=== PATIENT | male | born 1940 | race Caucasian/White ===

== ENCOUNTER 2019-11-13 19:26 | Inpatient (IN) ==
[2019-11-13 20:23] LABS: Basophils % 0.3 % (0.0-0.8); Eosinophils % 0.1 % (0.00-10.9); Hematocrit 30.4 VOL% (42.0-52.0); Immature Granulocytes % 0.7 %; Lymphocytes # 0.7 10*3/uL (1.4-4.0); Mean Corpuscular HGB Conc 32.9 GM/DL (32-36); Mean Platelet Volume 11.2 FL (9.6-12.0); Monocytes % 11.1 % (1.7-12.7); Neutrophils % 82.8 % (38.7-73.9); Platelet Count 212 T/CUMM (130-400); Red Blood Count 3.34 MC/CUMM (3.8-5.5); Red Cell Distribution Width 14.1 % (9.3-17.3); White Blood Count 13.9 T/CUMM (4-12)
[2019-11-13] MEDS ORDERED: FUROSEMIDE 100 MG/10 ML VIAL IV STA (20:30)
[2019-11-13 20:36] LABS: INR 1.1; PT Patient Result 11.4 SECS (9.8-11.9)
[2019-11-13 20:48] LABS: Albumin 3.4 G/DL (3.4-5.0); Bilirubin,Total 0.8 MG/DL (0.2-1.0); Calcium 8.6 MG/DL (8.5-10.1); Total Protein 8.2 G/DL (6.4-8.3)
[2019-11-13] MEDS ORDERED: cefTRIAXone 1,000 MG in SODIUM CHLORIDE 0.9% 100 ML IV STA (20:48)
[2019-11-13] MEDS ORDERED: AZITHROMYCIN INJ 500 MG in SODIUM CHLORIDE 0.9% 250 ML IV STA (20:48)
[2019-11-13 20:57] LABS: Ferritin 153.4 ng/ml (26-388)
[2019-11-13] MEDS ORDERED: ENOXAPARIN 100 MG/ML SYRINGE SUBCUT STA (21:14)
[2019-11-13] MEDS ORDERED: ASPIRIN 325 MG TABLET PO STA (21:14)
[2019-11-13] MEDS ORDERED: POTASSIUM CHLORIDE 20 MEQ TABLET PO STA (21:20)
[2019-11-13] MEDS ORDERED: GLUCAGON 1 MG VIAL IM PRN (21:36)
[2019-11-13] MEDS ORDERED: diphenhydrAMINE CAP 25 MG CAPSULE PO PRN (21:36)
[2019-11-13] MEDS ORDERED: ACETAMINOPHEN 325 MG TABLET PO PRN (21:36)
[2019-11-13] MEDS ORDERED: ALUMINUM/MAGNES/SIMETH MAX STR 30 ML UDCUP PO PRN (21:36)
[2019-11-13] MEDS ORDERED: DEXTROSE 50% 25 GM/50 ML VIAL IV PRN ×2 (21:36)
[2019-11-13] MEDS ORDERED: NICOTINE 21 MG/24 HR PATCH TRANSDERM PRN (21:36)
[2019-11-13] MEDS ORDERED: LACTULOSE 20 GM/30 ML UDCUP PO PRN (21:36)
[2019-11-13] MEDS ORDERED: PROMETHAZINE 25 MG/1 ML VIAL IM PRN (21:36)
[2019-11-13] MEDS ORDERED: hydrALAZINE 20 MG/1 ML VIAL IV PRN (21:36)
[2019-11-13] MEDS ORDERED: guaiFENesin/DM ER 600-30 MG TABLET PO PRN (21:36)
[2019-11-13] MEDS ORDERED: SIMETHICONE CHEW 125 MG TABLET PO PRN (21:36)
[2019-11-13] MEDS ORDERED: ONDANSETRON 4 MG/2 ML VIAL IV PRN (21:36)
[2019-11-13] MEDS ORDERED: NITROGLYCERIN SL 0.4 MG TABLET SL PRN (21:42)
[2019-11-13] MEDS ORDERED: ALBUTEROL 2.5 MG/3 ML NEB RESP TX PRN (23:34)
[2019-11-14] MEDS: ZALEPLON 5 MG CAPSULE PO PRN ×3 (00:05→22:05)
[2019-11-14 03:28] LABS: Basophils % 0.2 % (0.0-0.8); Eosinophils % 0.1 % (0.00-10.9); Hematocrit 28.9 VOL% (42.0-52.0); Hemoglobin 9.3 GM/DL (14.0-18.0); Immature Granulocytes % 1.3 %; Immature Granulocytes Absolute 0.18 #; Lymphocytes # 0.4 10*3/uL (1.4-4.0); Lymphocytes % 2.8 % (21.2-54.2); Mean Corpuscular HGB Conc 32.2 GM/DL (32-36); Mean Platelet Volume 11.4 FL (9.6-12.0); Monocytes % 9.4 % (1.7-12.7); Neutrophils % 86.2 % (38.7-73.9); Platelet Count 204 T/CUMM (130-400); Red Blood Count 3.14 MC/CUMM (3.8-5.5); Red Cell Distribution Width 14.3 % (9.3-17.3); White Blood Count 13.5 T/CUMM (4-12)
[2019-11-14 05:03] LABS: Band Neutrophils 1 % (0-10); Hypochromasia Slight; Lymphocytes 1 % (20-55); Segmented Neutrophils 92 % (50-85); Total Cells Counted 100
[2019-11-14 05:04] LABS: Microcytosis 1+; Platelet Estimate Normal; Polychromasia Slight
[2019-11-14] MEDS: ALBUTEROL 2.5 MG/3 ML NEB RESP TX SCH ×4 (07:00→23:30)
[2019-11-14 08:48] LABS: Calcium 8.5 MG/DL (8.5-10.1)
[2019-11-14 08:50] LABS: Risk Ratio 3.19; VLDL CHOLESTEROL 21.8 MG/DL
[2019-11-14] MEDS ORDERED: ASPIRIN EC 325 MG TABLET PO SCH (09:00)
[2019-11-14] MEDS ORDERED: FUROSEMIDE 40 MG/4 ML VIAL IV SCH ×2 (09:00→16:00)
[2019-11-14] MEDS ORDERED: POTASSIUM CHLORIDE 20 MEQ TABLET PO PRN (09:11)
[2019-11-14] MEDS: carvediloL 3.125 MG TABLET PO SCH ×2 (09:38→22:05)
[2019-11-14] MEDS: ENOXAPARIN 100 MG/ML SYRINGE SUBCUT SCH ×2 (09:39→22:06)
[2019-11-14] MEDS: DOCUSATE SODIUM 100 MG CAPSULE PO SCH ×2 (09:39→22:05)
[2019-11-14] MEDS: INSULIN LISPRO 100 UNIT/ML SUBCUT SCH ×4 (09:39→22:06)
[2019-11-14 10:01] LABS: % Iron Saturation 7.1 % (18-50)
[2019-11-14 10:53] LABS: CKMB % 1.2 %
[2019-11-14 10:55] LABS: Troponin I 1.92 NG/ML (0.00-0.045)
[2019-11-14] MEDS ORDERED: FUROSEMIDE 40 MG/4 ML VIAL IV ONE (11:05)
[2019-11-14] MEDS ORDERED: LORazepam 2 MG/1 ML VIAL IV ONE (11:28)
[2019-11-14] MEDS ORDERED: NITROGLYCERIN 2% OINT 1 INCH/GM PACK TOP SCH (12:00)
[2019-11-14] MEDS: NITROGLYCERIN 2% OINT 1 INCH/GM PACK TOP SCH ×2 (12:24→18:10)
[2019-11-14] MEDS ORDERED: methylPREDNISolone SOD SUC 125 MG/2 ML VIAL IV ONE (12:44)
[2019-11-14 13:33] LABS: ABG Base Excess -2.9 MMOL/L (-2.5-2.5); ABG Oxygen Saturation 96.5 % (95-100); ABG PCO2 43.7 MM HG (35-48); ABG PH 7.329 (7.35-7.45); ABG PO2 88.2 MM HG (80-95); ABG TCO2 21.1 MMOL/L (23-27); Allen Test Positive
[2019-11-14] MEDS: ALBUTEROL/IPRATROPIUM 3 ML NEB RESP TX SCH ×2 (13:34→20:18)
[2019-11-14] MEDS: LEVOFLOXACIN INJ 750 MG in PREMIX 1 EACH IV SCH (14:23)
[2019-11-14 15:30] LABS: Apearance,Urine CLEAR (Clear); Bilirubin,Urine Negative (Negative); Blood, Urine Large mg/dL (Negative); Glucose,Urine (UA) Negative (Negative); Hyaline Casts,Urine 23 /LPF (0-3); Ketones,Urine Negative (Negative); Mucus,Urine Occasional /LPF (Occasional); Nitrite,Urine Negative (Negative); Protein,Urine Negative; RBC,Urine <1 /HPF (0-4); Urine Color Yellow (Yellow); Urine Specific Gravity 1.006 (1.001-1.035); Urine Urobilinogen < 2.0 EU/DL (0.2-1.0)
[2019-11-14] MEDS: PIPERACILLIN/TAZOBACTAM 3,375 MG in SODIUM CHLORIDE 0.9% 100 ML IV SCH ×2 (16:34→23:42)
[2019-11-14] MEDS ORDERED: AZITHROMYCIN INJ 500 MG in SODIUM CHLORIDE 0.9% 250 ML IV SCH (21:00)
[2019-11-14] MEDS ORDERED: cefTRIAXone 1,000 MG in SYRINGE 1 EACH IV SCH (21:00)
[2019-11-14] MEDS: ATORVASTATIN 40 MG TABLET PO SCH (22:05)
[2019-11-14] MEDS: VANCOMYCIN INJ 1,250 MG in SODIUM CHLORIDE 0.9% 250 ML IV SCH (22:08)
[2019-11-15] MEDS: NITROGLYCERIN 2% OINT 1 INCH/GM PACK TOP SCH ×4 (01:40→17:07)
[2019-11-15] MEDS: ZALEPLON 5 MG CAPSULE PO PRN (01:41)
[2019-11-15] MEDS: ALBUTEROL/IPRATROPIUM 3 ML NEB RESP TX SCH ×4 (01:45→20:15)
[2019-11-15 07:02] LABS: Basophils % 0.1 % (0.0-0.8); Hematocrit 30.7 VOL% (42.0-52.0); Immature Granulocytes % 0.9 %; Immature Granulocytes Absolute 0.15 #; Lymphocytes # 0.7 10*3/uL (1.4-4.0); Lymphocytes % 3.8 % (21.2-54.2); Mean Corpuscular HGB Conc 32.6 GM/DL (32-36); Mean Corpuscular Volume 92.2 FL (87-102); Mean Platelet Volume 12.2 FL (9.6-12.0); Monocytes % 7.8 % (1.7-12.7); Neutrophils % 87.4 % (38.7-73.9); Platelet Count 211 T/CUMM (130-400); Red Blood Count 3.33 MC/CUMM (3.8-5.5); Red Cell Distribution Width 14.3 % (9.3-17.3)
[2019-11-15 07:43] LABS: Calcium 8.5 MG/DL (8.5-10.1); Osmolality,Calculated 281.1 MOS/KG (273-304)
[2019-11-15 07:56] LABS: CKMB % 0.9 %
[2019-11-15 07:59] LABS: Troponin I 4.42 NG/ML (0.00-0.045)
[2019-11-15 08:31] LABS: Band Neutrophils 1 % (0-10); Hypochromasia Slight; Lymphocytes 4 % (20-55); Platelet Estimate Normal; Segmented Neutrophils 89 % (50-85); Total Cells Counted 100
[2019-11-15] MEDS: carvediloL 6.25 MG TABLET PO SCH ×2 (08:48→21:45)
[2019-11-15] MEDS: INSULIN LISPRO 100 UNIT/ML SUBCUT SCH ×4 (08:48→21:45)
[2019-11-15] MEDS: DOCUSATE SODIUM 100 MG CAPSULE PO SCH ×2 (08:48→21:45)
[2019-11-15] MEDS: ENOXAPARIN 100 MG/ML SYRINGE SUBCUT SCH ×2 (08:49→21:45)
[2019-11-15] MEDS: PIPERACILLIN/TAZOBACTAM 3,375 MG in SODIUM CHLORIDE 0.9% 100 ML IV SCH ×2 (08:52→16:16)
[2019-11-15] MEDS ORDERED: ASPIRIN EC 81 MG TABLET PO SCH (09:00)
[2019-11-15] MEDS: lisinopriL 5 MG TABLET PO SCH (09:02)
[2019-11-15] MEDS: FERROUS SULFATE 325 MG TABLET PO SCH ×2 (10:06→16:34)
[2019-11-15] MEDS: CLORAZEPATE 3.75 MG TABLET PO SCH ×3 (10:06→21:45)
[2019-11-15] MEDS: ALBUTEROL 2.5 MG/3 ML NEB RESP TX SCH (13:22)
[2019-11-15] MEDS: LEVOFLOXACIN INJ 750 MG in PREMIX 1 EACH IV SCH (13:49)
[2019-11-15] MEDS ORDERED: ZIPRASIDONE 20 MG/1 ML VIAL IM ONE (20:00)
[2019-11-15] MEDS: ATORVASTATIN 40 MG TABLET PO SCH (21:45)
[2019-11-15] MEDS: VANCOMYCIN INJ 1,250 MG in SODIUM CHLORIDE 0.9% 250 ML IV SCH (21:51)
[2019-11-15] MEDS: PHENYLEPHRINE DRIP 40 MG/250 ML PREMIX IV PRN (22:58)
[2019-11-15] MEDS ORDERED: NOREPINEPHRINE 8 MG in SODIUM CHLORIDE 0.9% 242 ML IV PRN (23:24)
[2019-11-15 23:25] LABS: Basophils % 0.2 % (0.0-0.8); Hematocrit 29.6 VOL% (42.0-52.0); Hemoglobin 9.7 GM/DL (14.0-18.0); Immature Granulocytes % 2.5 %; Immature Granulocytes Absolute 0.45 #; Lymphocytes # 1.7 10*3/uL (1.4-4.0); Lymphocytes % 9.3 % (21.2-54.2); Mean Corpuscular HGB Conc 32.8 GM/DL (32-36); Mean Corpuscular Volume 91.1 FL (87-102); Mean Platelet Volume 12.2 FL (9.6-12.0); Monocytes % 8.4 % (1.7-12.7); NRBC # 0.03 10*3/uL; Neutrophils % 79.6 % (38.7-73.9); Platelet Count 196 T/CUMM (130-400); Red Blood Count 3.25 MC/CUMM (3.8-5.5); Red Cell Distribution Width 14.1 % (9.3-17.3); White Blood Count 18.2 T/CUMM (4-12)
[2019-11-15] MEDS ORDERED: SODIUM BICARBONATE 50 MEQ/50 ML SYRINGE IV ONE (23:25)
[2019-11-15] MEDS ORDERED: CALCIUM CHLORIDE 1,000 MG/10 ML SYRINGE IV ONE (23:25)
[2019-11-15] MEDS ORDERED: EPINEPHrine 1 MG/10 ML SYRINGE ONE (23:25)
[2019-11-15 23:47] LABS: ABG Base Excess 1.3 MMOL/L (-2.5-2.5); ABG HCO3 25.5 MMOL/L (20-26); ABG Oxygen Saturation 94.3 % (95-100); ABG PCO2 66.3 MM HG (35-48); ABG PH 7.263 (7.35-7.45); ABG PO2 86.8 MM HG (80-95); ABG TCO2 27.6 MMOL/L (23-27)
[2019-11-15 23:51] LABS: Partial Thromboplastin Time 36.1 SECS (23.9-33.8)
[2019-11-15 23:52] LABS: PT Patient Result 15.6 SECS (9.8-11.9)
[2019-11-15 23:53] LABS: INR 1.5
[2019-11-15 23:57] LABS: Calcium 7.6 MG/DL (8.5-10.1); Troponin I 4.06 NG/ML (0.00-0.045)
[2019-11-16] LABS: Albumin 2.7 G/DL (3.4-5.0); Calcium 7.5 MG/DL (8.5-10.1); Osmolality,Calculated 283.8 MOS/KG (273-304); Total Protein 6.8 G/DL (6.4-8.3)
[2019-11-16] MEDS ORDERED: FUROSEMIDE 40 MG/4 ML VIAL ONE (00:07)
[2019-11-16 00:20] LABS: ABG Base Excess 0.9 MMOL/L (-2.5-2.5); ABG HCO3 29.6 MMOL/L (20-26); ABG Oxygen Saturation 76.8 % (95-100); ABG PCO2 70.6 MM HG (35-48); ABG PO2 53.5 MM HG (80-95); ABG TCO2 31.7 MMOL/L (23-27)
[2019-11-16] MEDS: ALBUTEROL/IPRATROPIUM 3 ML NEB RESP TX SCH ×4 (01:00→19:19)
[2019-11-16] MEDS: CISATRACURIUM 200 MG in SODIUM CHLORIDE 0.9% 180 ML IV PRN ×2 (01:23→15:05)
[2019-11-16] MEDS: MIDAZOLAM 100 MG in SODIUM CHLORIDE 0.9% 80 ML IV PRN ×3 (01:23→23:41)
[2019-11-16] MEDS: fentaNYL INJ 1,250 MCG in SODIUM CHLORIDE 0.9% 225 ML IV PRN ×3 (01:23→11:30)
[2019-11-16] MEDS: PHENYLEPHRINE DRIP 40 MG/250 ML PREMIX IV PRN ×2 (01:27→04:29)
[2019-11-16] MEDS ORDERED: PHENYLEPHRINE DRIP 40 MG/250 ML PREMIX IV ONE (01:34)
[2019-11-16 01:44] LABS: ABG PH 7.298 (7.35-7.45)
[2019-11-16 01:45] LABS: ABG PCO2 58.9 MM HG (35-48); ABG PO2 55.6 MM HG (80-95)
[2019-11-16 01:46] LABS: ABG Base Excess 1.2 MMOL/L (-2.5-2.5); ABG HCO3 25.2 MMOL/L (20-26); ABG TCO2 26.5 MMOL/L (23-27)
[2019-11-16 01:55] LABS: Apearance,Urine CLEAR (Clear); Bacteria,Urine Occasional /HPF (Few); Bilirubin,Urine Negative (Negative); Blood, Urine Moderate mg/dL (Negative); Glucose,Urine (UA) Negative (Negative); Hyaline Casts,Urine 7 /LPF (0-3); Ketones,Urine 5 mg/dL (Negative); Mucus,Urine Occasional /LPF (Occasional); Nitrite,Urine Negative (Negative); Protein,Urine 30 MG/DL; RBC,Urine 16 /HPF (0-4); Squamous Epithelial Cell,Urine Occasional /HPF (0-10); Urine Color Straw (Yellow); Urine Specific Gravity 1.008 (1.001-1.035); Urine Urobilinogen < 2.0 EU/DL (0.2-1.0); WBC,Urine 4 /HPF (0-6)
[2019-11-16] MEDS ORDERED: FUROSEMIDE 40 MG/4 ML VIAL IV ONE ×3 (02:01→08:24)
[2019-11-16] MEDS ORDERED: DEXTROSE 50% 25 GM/50 ML VIAL IV PRN (02:05)
[2019-11-16] MEDS ORDERED: GLUCAGON 1 MG VIAL IM PRN (02:05)
[2019-11-16] MEDS ORDERED: MAGNESIUM SULF RIDER 1 GM in PREMIX 1 EACH IV PRN (02:08)
[2019-11-16] MEDS: NITROGLYCERIN 2% OINT 1 INCH/GM PACK TOP SCH ×3 (03:05→13:07)
[2019-11-16] MEDS: ALBUTEROL 2.5 MG/3 ML NEB RESP TX SCH ×7 (03:18→08:17)
[2019-11-16] MEDS: PHENYLEPHRINE INJ 160 MG in SODIUM CHLORIDE 0.9% 234 ML IV PRN ×2 (04:29→20:16)
[2019-11-16] MEDS: NOREPINEPHRINE 16 MG in SODIUM CHLORIDE 0.9% 234 ML IV PRN ×2 (04:49→18:01)
[2019-11-16] MEDS: PIPERACILLIN/TAZOBACTAM 3,375 MG in SODIUM CHLORIDE 0.9% 100 ML IV SCH ×3 (05:06→20:52)
[2019-11-16 05:24] LABS: ABG Base Excess 1.5 MMOL/L (-2.5-2.5); ABG HCO3 25.8 MMOL/L (20-26); ABG PCO2 39.3 MM HG (35-48); ABG PH 7.426 (7.35-7.45); ABG TCO2 23.6 MMOL/L (23-27)
[2019-11-16 05:29] LABS: Basophils % 0.2 % (0.0-0.8); Hematocrit 29.9 VOL% (42.0-52.0); Hemoglobin 10.2 GM/DL (14.0-18.0); Immature Granulocytes % 1.4 %; Immature Granulocytes Absolute 0.33 #; Lymphocytes # 0.5 10*3/uL (1.4-4.0); Lymphocytes % 2.2 % (21.2-54.2); Mean Corpuscular HGB Conc 34.1 GM/DL (32-36); Mean Corpuscular Volume 87.9 FL (87-102); Mean Platelet Volume 12.7 FL (9.6-12.0); Monocytes % 7.5 % (1.7-12.7); Neutrophils % 88.7 % (38.7-73.9); Platelet Count 217 T/CUMM (130-400); Red Cell Distribution Width 13.8 % (9.3-17.3); White Blood Count 24.4 T/CUMM (4-12)
[2019-11-16 05:30] LABS: INR 1.6; PT Patient Result 16.8 SECS (9.8-11.9); Partial Thromboplastin Time 34.6 SECS (23.9-33.8)
[2019-11-16 05:48] LABS: Calcium 7.9 MG/DL (8.5-10.1); Osmolality,Calculated 286.7 MOS/KG (273-304)
[2019-11-16] MEDS: INSULIN REGULAR 100 UNIT/ML IV SCH ×5 (06:01→21:15)
[2019-11-16 06:04] LABS: CKMB % 1.2 %
[2019-11-16 06:14] LABS: Troponin I 4.03 NG/ML (0.00-0.045)
[2019-11-16] MEDS: POTASSIUM CHLORIDE RIDER 100 ML IV PRN ×4 (06:39→23:31)
[2019-11-16 06:40] LABS: Anisocytosis 1+; Band Neutrophils 21 % (0-10); Lymphocytes 1 % (20-55); Metamyelocytes 1 %; Nucleated Red Blood Cells 1 (0-5); Platelet Estimate Normal; Segmented Neutrophils 68 % (50-85); Total Cells Counted 100
[2019-11-16] MEDS ORDERED: SODIUM CHLORIDE 0.9% IV ONE (09:02)
[2019-11-16] MEDS ORDERED: MAGNESIUM SULF IV ONE (09:02)
[2019-11-16] MEDS ORDERED: MAGNESIUM SULF RIDER 2 GM in PREMIX 1 EACH IV ONE (09:03)
[2019-11-16] MEDS ORDERED: MAGNESIUM SULF RIDER 50 ML IV ONE (09:05)
[2019-11-16] MEDS: PANTOPRAZOLE 40 MG VIAL IV SCH (09:08)
[2019-11-16] MEDS: FERROUS SULFATE 325 MG TABLET PO SCH ×2 (09:09→16:31)
[2019-11-16] MEDS: lisinopriL 5 MG TABLET PO SCH (09:09)
[2019-11-16] MEDS: ASPIRIN CHEW 81 MG TABLET PO SCH (09:10)
[2019-11-16] MEDS: CLORAZEPATE 3.75 MG TABLET PO SCH ×3 (09:10→21:02)
[2019-11-16] MEDS: carvediloL 6.25 MG TABLET PO SCH (09:10)
[2019-11-16] MEDS: DOCUSATE SODIUM 100 MG CAPSULE PO SCH ×2 (09:11→21:02)
[2019-11-16] MEDS: MINERAL OIL/PETROLATUM OPH OINT 3.5 GM TUBE BOTH EYES SCH ×3 (09:13→21:16)
[2019-11-16 11:09] LABS: Basophils % 0.2 % (0.0-0.8); Hematocrit 29.4 VOL% (42.0-52.0); Hemoglobin 9.8 GM/DL (14.0-18.0); Immature Granulocytes % 0.8 %; Immature Granulocytes Absolute 0.21 #; Lymphocytes # 0.6 10*3/uL (1.4-4.0); Lymphocytes % 2.1 % (21.2-54.2); Mean Corpuscular HGB Conc 33.3 GM/DL (32-36); Mean Corpuscular Volume 89.4 FL (87-102); Mean Platelet Volume 11.9 FL (9.6-12.0); Monocytes % 6.4 % (1.7-12.7); Neutrophils % 90.5 % (38.7-73.9); Platelet Count 245 T/CUMM (130-400); Red Blood Count 3.29 MC/CUMM (3.8-5.5); White Blood Count 25.6 T/CUMM (4-12)
[2019-11-16 11:21] LABS: INR 1.5; PT Patient Result 16.1 SECS (9.8-11.9)
[2019-11-16 11:45] LABS: Anisocytosis 1+; Band Neutrophils 22 % (0-10); Lymphocytes 3 % (20-55); Metamyelocytes 1 %; Platelet Estimate Normal; Segmented Neutrophils 70 % (50-85); Total Cells Counted 100
[2019-11-16 11:52] LABS: CKMB % 1.8 %; Calcium 7.8 MG/DL (8.5-10.1); Osmolality,Calculated 292.3 MOS/KG (273-304)
[2019-11-16 11:53] LABS: Troponin I 3.33 NG/ML (0.00-0.045)
[2019-11-16] MEDS: LEVOFLOXACIN INJ 750 MG in PREMIX 1 EACH IV SCH (12:51)
[2019-11-16 14:03] LABS: Apearance,Urine Slightly Hazy (Clear); Bilirubin,Urine Negative (Negative); Blood, Urine Large mg/dL (Negative); Glucose,Urine (UA) Negative (Negative); Hyaline Casts,Urine 16 /LPF (0-3); Ketones,Urine 5 mg/dL (Negative); Mucus,Urine Occasional /LPF (Occasional); Nitrite,Urine Negative (Negative); Protein,Urine Negative; RBC,Urine 234 /HPF (0-4); Squamous Epithelial Cell,Urine Occasional /HPF (0-10); Urine Color Yellow (Yellow); Urine Specific Gravity 1.009 (1.001-1.035); Urine Urobilinogen < 2.0 EU/DL (0.2-1.0); WBC,Urine 37 /HPF (0-6)
[2019-11-16] MEDS: fentaNYL INJ 2,500 MCG in SODIUM CHLORIDE 0.9% 450 ML IV PRN ×2 (15:05→22:38)
[2019-11-16 17:07] LABS: Basophils % 0.1 % (0.0-0.8); Hematocrit 26.7 VOL% (42.0-52.0); Immature Granulocytes % 0.8 %; Immature Granulocytes Absolute 0.17 #; Lymphocytes # 0.5 10*3/uL (1.4-4.0); Lymphocytes % 2.3 % (21.2-54.2); Mean Corpuscular HGB Conc 33.7 GM/DL (32-36); Mean Platelet Volume 11.9 FL (9.6-12.0); Monocytes % 2.4 % (1.7-12.7); Neutrophils % 94.4 % (38.7-73.9); Platelet Count 214 T/CUMM (130-400); Red Cell Distribution Width 14.2 % (9.3-17.3); White Blood Count 22.1 T/CUMM (4-12)
[2019-11-16 17:26] LABS: CKMB % 2.5 %; Calcium 7.6 MG/DL (8.5-10.1); Osmolality,Calculated 296.1 MOS/KG (273-304)
[2019-11-16 17:29] LABS: Troponin I 2.98 NG/ML (0.00-0.045)
[2019-11-16 17:33] LABS: INR 1.5; PT Patient Result 16.1 SECS (9.8-11.9); Partial Thromboplastin Time 32.8 SECS (23.9-33.8)
[2019-11-16 17:58] LABS: Anisocytosis Slight; Lymphocytes 2 % (20-55); Microcytosis Slight; Poikilocytosis Slight; Segmented Neutrophils 95 % (50-85); Total Cells Counted 100
[2019-11-16] MEDS: VANCOMYCIN INJ 1,250 MG in SODIUM CHLORIDE 0.9% 250 ML IV SCH (20:48)
[2019-11-16] MEDS: ATORVASTATIN 40 MG TABLET PO SCH (21:02)
[2019-11-16 22:33] VITALS: BP 117/62
[2019-11-16 23:01] LABS: Basophils % 0.1 % (0.0-0.8); Hematocrit 23.7 VOL% (42.0-52.0); Hemoglobin 7.9 GM/DL (14.0-18.0); Immature Granulocytes % 0.8 %; Immature Granulocytes Absolute 0.17 #; Lymphocytes # 0.6 10*3/uL (1.4-4.0); Lymphocytes % 2.7 % (21.2-54.2); Mean Corpuscular HGB Conc 33.3 GM/DL (32-36); Mean Corpuscular Volume 88.8 FL (87-102); Monocytes % 5.9 % (1.7-12.7); Neutrophils % 90.5 % (38.7-73.9); Platelet Count 200 T/CUMM (130-400); Red Blood Count 2.67 MC/CUMM (3.8-5.5); Red Cell Distribution Width 13.9 % (9.3-17.3); White Blood Count 22.1 T/CUMM (4-12)
[2019-11-16 23:14] LABS: INR 1.6; PT Patient Result 17.2 SECS (9.8-11.9); Partial Thromboplastin Time 38.2 SECS (23.9-33.8)
[2019-11-16 23:19] LABS: CKMB % 3.3 %; Calcium 7.2 MG/DL (8.5-10.1); Osmolality,Calculated 297.8 MOS/KG (273-304)
[2019-11-16 23:20] LABS: Lymphocytes 6 % (20-55); Platelet Estimate Normal; Segmented Neutrophils 91 % (50-85); Total Cells Counted 100
[2019-11-16 23:21] LABS: Hypochromasia Slight; Microcytosis Slight
[2019-11-16 23:21] LABS: Troponin I 2.5 NG/ML (0.00-0.045)
[2019-11-17] MEDS: INSULIN REGULAR 100 UNIT/ML IV SCH ×7 (00:19→14:02)
[2019-11-17] MEDS: ALBUTEROL/IPRATROPIUM 3 ML NEB RESP TX SCH ×4 (00:23→20:15)
[2019-11-17] MEDS: CISATRACURIUM 200 MG in SODIUM CHLORIDE 0.9% 180 ML IV PRN ×2 (02:08→11:43)
[2019-11-17] MEDS: PIPERACILLIN/TAZOBACTAM 3,375 MG in SODIUM CHLORIDE 0.9% 100 ML IV SCH ×3 (04:30→22:23)
[2019-11-17 04:34] LABS: ABG Base Excess 3.1 MMOL/L (-2.5-2.5); ABG HCO3 27.1 MMOL/L (20-26); ABG Oxygen Saturation 95.8 % (95-100); ABG PCO2 46.2 MM HG (35-48); ABG PH 7.396 (7.35-7.45); ABG PO2 82.2 MM HG (80-95); ABG TCO2 26.5 MMOL/L (23-27)
[2019-11-17 04:46] LABS: Basophils % 0.1 % (0.0-0.8); Hematocrit 22.8 VOL% (42.0-52.0); Hemoglobin 7.7 GM/DL (14.0-18.0); Immature Granulocytes % 0.7 %; Immature Granulocytes Absolute 0.15 #; Lymphocytes # 0.6 10*3/uL (1.4-4.0); Lymphocytes % 2.7 % (21.2-54.2); Mean Corpuscular HGB Conc 33.8 GM/DL (32-36); Mean Corpuscular Volume 87.4 FL (87-102); Mean Platelet Volume 12.3 FL (9.6-12.0); Monocytes % 5.3 % (1.7-12.7); Neutrophils % 91.2 % (38.7-73.9); Platelet Count 177 T/CUMM (130-400); Red Blood Count 2.61 MC/CUMM (3.8-5.5); Red Cell Distribution Width 14.1 % (9.3-17.3)
[2019-11-17 05:00] LABS: INR 1.7; PT Patient Result 17.3 SECS (9.8-11.9); Partial Thromboplastin Time 38.3 SECS (23.9-33.8)
[2019-11-17 05:08] LABS: Albumin 2.1 G/DL (3.4-5.0); Bilirubin,Total 1.6 MG/DL (0.2-1.0); CKMB % 3.9 %; Calcium 7.3 MG/DL (8.5-10.1); Osmolality,Calculated 297.8 MOS/KG (273-304); Total Protein 5.6 G/DL (6.4-8.3)
[2019-11-17 05:18] LABS: Band Neutrophils 1 % (0-10); Hypochromasia 1+; Lymphocytes 2 % (20-55); Platelet Estimate Adequate; Segmented Neutrophils 94 % (50-85); Total Cells Counted 100; Troponin I 2.14 NG/ML (0.00-0.045)
[2019-11-17 05:19] LABS: Microcytosis Slight; Ovalocytes Slight
[2019-11-17] MEDS: fentaNYL INJ 2,500 MCG in SODIUM CHLORIDE 0.9% 450 ML IV PRN (07:15)
[2019-11-17] MEDS ORDERED: NOREPINEPHRINE 4 MG/4 ML VIAL IV ONE (07:27)
[2019-11-17] MEDS: NOREPINEPHRINE 16 MG in SODIUM CHLORIDE 0.9% 234 ML IV PRN ×3 (07:46→20:48)
[2019-11-17] MEDS: PANTOPRAZOLE 40 MG VIAL IV SCH (08:19)
[2019-11-17] MEDS: FERROUS SULFATE 325 MG TABLET PO SCH ×2 (08:20→16:20)
[2019-11-17] MEDS: ASPIRIN CHEW 81 MG TABLET PO SCH (08:20)
[2019-11-17] MEDS: MINERAL OIL/PETROLATUM OPH OINT 3.5 GM TUBE BOTH EYES SCH ×3 (08:20→22:23)
[2019-11-17] MEDS: DOCUSATE SODIUM 100 MG CAPSULE PO SCH (08:20)
[2019-11-17] MEDS: CLORAZEPATE 3.75 MG TABLET PO SCH ×2 (08:26→14:46)
[2019-11-17 11:05] LABS: Basophils % 0.1 % (0.0-0.8); Hematocrit 22.4 VOL% (42.0-52.0); Hemoglobin 7.5 GM/DL (14.0-18.0); Immature Granulocytes % 1.2 %; Immature Granulocytes Absolute 0.29 #; Lymphocytes # 0.6 10*3/uL (1.4-4.0); Lymphocytes % 2.4 % (21.2-54.2); Mean Corpuscular HGB Conc 33.5 GM/DL (32-36); Mean Corpuscular Volume 89.6 FL (87-102); Mean Platelet Volume 11.9 FL (9.6-12.0); Monocytes % 6.7 % (1.7-12.7); NRBC # 0.03 10*3/uL; Neutrophils % 89.6 % (38.7-73.9); Platelet Count 179 T/CUMM (130-400); Red Cell Distribution Width 14.4 % (9.3-17.3)
[2019-11-17 11:15] LABS: INR 1.8; PT Patient Result 18.8 SECS (9.8-11.9); Partial Thromboplastin Time 38.2 SECS (23.9-33.8)
[2019-11-17 11:25] LABS: Band Neutrophils 7 % (0-10); Hypochromasia 1+; Lymphocytes 4 % (20-55); Segmented Neutrophils 86 % (50-85); Total Cells Counted 100
[2019-11-17 11:26] LABS: Microcytosis Slight; Platelet Estimate Adequate; Polychromasia Slight
[2019-11-17 11:32] LABS: Bilirubin,Total 1.3 MG/DL (0.2-1.0); Calcium 7.3 MG/DL (8.5-10.1); Osmolality,Calculated 298.7 MOS/KG (273-304); Total Protein 5.4 G/DL (6.4-8.3); Troponin I 1.94 NG/ML (0.00-0.045)
[2019-11-17] MEDS: MIDAZOLAM 100 MG in SODIUM CHLORIDE 0.9% 80 ML IV PRN (12:12)
[2019-11-17] MEDS: PHENYLEPHRINE INJ 160 MG in SODIUM CHLORIDE 0.9% 234 ML IV PRN (13:25)
[2019-11-17] MEDS: LEVOFLOXACIN INJ 750 MG in PREMIX 1 EACH IV SCH (14:00)
[2019-11-17] MEDS ORDERED: AMIODARONE 150 MG/3 ML VIAL ONE (14:36)
[2019-11-17] MEDS ORDERED: AMIODARONE INJ 450 MG in DEXTROSE 5% 241 ML IV SCH ×2 (15:00→21:00)
[2019-11-17 15:27] LABS: Basophils % 0.1 % (0.0-0.8); Hematocrit 22.6 VOL% (42.0-52.0); Hemoglobin 7.4 GM/DL (14.0-18.0); Immature Granulocytes % 1.2 %; Lymphocytes # 0.6 10*3/uL (1.4-4.0); Lymphocytes % 2.3 % (21.2-54.2); Mean Corpuscular HGB Conc 32.7 GM/DL (32-36); Mean Corpuscular Volume 90.8 FL (87-102); Mean Platelet Volume 12.3 FL (9.6-12.0); Monocytes % 6.5 % (1.7-12.7); NRBC # 0.08 10*3/uL; Neutrophils % 89.9 % (38.7-73.9); Platelet Count 194 T/CUMM (130-400); Red Blood Count 2.49 MC/CUMM (3.8-5.5); Red Cell Distribution Width 14.5 % (9.3-17.3); White Blood Count 24.9 T/CUMM (4-12)
[2019-11-17 15:30] LABS: ABG Base Excess -2.4 MMOL/L (-2.5-2.5); ABG HCO3 22.4 MMOL/L (20-26); ABG Oxygen Saturation 99.1 % (95-100); ABG PCO2 38.6 MM HG (35-48); ABG PH 7.373 (7.35-7.45); ABG TCO2 21.4 MMOL/L (23-27)
[2019-11-17 15:36] LABS: INR 1.9; PT Patient Result 19.9 SECS (9.8-11.9); Partial Thromboplastin Time 39.6 SECS (23.9-33.8)
[2019-11-17 15:45] LABS: Albumin 1.9 G/DL (3.4-5.0); Bilirubin,Total 1.5 MG/DL (0.2-1.0); CKMB % 4.2 %; Calcium 7.1 MG/DL (8.5-10.1); Osmolality,Calculated 297.8 MOS/KG (273-304); Total Protein 5.4 G/DL (6.4-8.3)
[2019-11-17 15:47] LABS: Troponin I 1.98 NG/ML (0.00-0.045)
[2019-11-17] MEDS: INSULIN REGULAR 100 UNIT/ML SUBCUT SCH ×2 (16:20→22:23)
[2019-11-17 16:35] LABS: Anisocytosis Slight; Band Neutrophils 6 % (0-10); Lymphocytes 2 % (20-55); Macrocytosis Slight; Microcytosis Slight; Nucleated Red Blood Cells 1 (0-5); Platelet Estimate Normal; Polychromasia 1+; Segmented Neutrophils 87 % (50-85); Total Cells Counted 100
[2019-11-17 16:36] LABS: Burr Cells Slight; Poikilocytosis Slight
[2019-11-17 19:00] LABS: Basophils % 0.1 % (0.0-0.8); Hematocrit 21.6 VOL% (42.0-52.0); Hemoglobin 7.1 GM/DL (14.0-18.0); Immature Granulocytes % 1.9 %; Immature Granulocytes Absolute 0.51 #; Lymphocytes % 7.4 % (21.2-54.2); Mean Corpuscular HGB Conc 32.9 GM/DL (32-36); Mean Corpuscular Volume 90.8 FL (87-102); Mean Platelet Volume 12.4 FL (9.6-12.0); Neutrophils % 83.6 % (38.7-73.9); Platelet Count 194 T/CUMM (130-400); Red Blood Count 2.38 MC/CUMM (3.8-5.5); White Blood Count 26.8 T/CUMM (4-12)
[2019-11-17 19:01] LABS: ABG Base Excess -2.9 MMOL/L (-2.5-2.5); ABG HCO3 21.9 MMOL/L (20-26); ABG Oxygen Saturation 93.2 % (95-100); ABG PCO2 49.6 MM HG (35-48); ABG PH 7.289 (7.35-7.45); ABG PO2 78.8 MM HG (80-95); ABG TCO2 22.4 MMOL/L (23-27)
[2019-11-17] MEDS ORDERED: EPINEPHrine 1 MG/ML VIAL ONE (19:17)
[2019-11-17 19:20] LABS: INR 2.3; Partial Thromboplastin Time 39.7 SECS (23.9-33.8)
[2019-11-17 19:22] LABS: Anisocytosis 2+; Band Neutrophils 1 % (0-10); Lymphocytes 12 % (20-55); Macrocytosis 2+; Microcytosis 2+; Nucleated Red Blood Cells 1 (0-5); Segmented Neutrophils 85 % (50-85); Total Cells Counted 100
[2019-11-17 19:23] LABS: Hypochromasia Slight; PT Patient Result 23.5 SECS (9.8-11.9); Platelet Estimate Normal
[2019-11-17] MEDS: ATORVASTATIN 40 MG TABLET PO SCH (20:52)
[2019-11-17] MEDS: VANCOMYCIN INJ 1,250 MG in SODIUM CHLORIDE 0.9% 250 ML IV SCH (22:23)
== END 2019-11-17 21:13 | disposition expired ==
LOC: EDUNIT# → N.ED 19:26 → N.EDINP 21:36 → SUATTDRO 21:36 → N.TELEN 23:27 → N.ICU 11-15 23:07
PROVIDERS: ADMIT Internal Medicine; ATTEND Family Medicine